=== PATIENT | female | born 1975 | race Caucasian/White ===

== ENCOUNTER 2018-01-20 10:00 | Emergency (ER) | payer OTHER ==
[2018-01-20 10:23] VITALS: Ht 170.2 cm
[2018-01-20 14:00] VITALS: BP 106/67
== END 2018-01-20 14:12 | disposition home or self-care (01) ==
LOC: ED 10:00
DX: M54.42 Lumbago with sciatica, left side (principal); R51 Headache; R07.89 Other chest pain; E66.01 Morbid (severe) obesity due to excess calories; I10 Essential (primary) hypertension; E11.9 Type 2 diabetes mellitus without complications; E78.00 Pure hypercholesterolemia, unspecified
CPT/HCPCS: J1885; J2270; J2405

== ENCOUNTER 2018-03-14 12:39 | Emergency (ER) | payer OTHER ==
[~2018-03-14] VITALS: Ht 167.6 cm; Wt 129.7 kg
[2018-03-14 12:49] VITALS: Ht 167.6 cm; Wt 129.7 kg
[2018-03-14 14:45] VITALS: BP 118/80
== END 2018-03-14 14:44 | disposition home or self-care (01) ==
LOC: ED 12:39
DX: S23.3XXA Sprain of ligaments of thoracic spine, initial encounter (principal); N39.0 Urinary tract infection, site not specified; I10 Essential (primary) hypertension; E11.9 Type 2 diabetes mellitus without complications; E78.00 Pure hypercholesterolemia, unspecified; Z98.890 Other specified postprocedural states; X58.XXXA Exposure to other specified factors, initial encounter; Y93.89 Activity, other specified; Y92.89 Other specified places as the place of occurrence of the external cause; Y99.8 Other external cause status
CPT/HCPCS: J1885

== ENCOUNTER 2018-04-17 13:41 | Emergency (ER) | payer OTHER ==
[~2018-04-17] VITALS: Ht 170.2 cm; Wt 130.3 kg
[2018-04-17 18:10] VITALS: BP 100/67
== END 2018-04-17 18:10 | disposition home or self-care (01) ==
LOC: ED 13:41
DX: G89.29 Other chronic pain (principal); M54.6 Pain in thoracic spine
CPT/HCPCS: J0780; J2270; J3010; J3490

== ENCOUNTER 2018-07-07 07:54 | Emergency (ER) | payer OTHER ==
[~2018-07-07] VITALS: Ht 170.2 cm; Wt 132.0 kg
[2018-07-07 08:01] VITALS: BP 132/67; Ht 170.2 cm; Wt 132.0 kg
== END 2018-07-07 10:43 | disposition home or self-care (01) ==
LOC: ED 07:54
DX: J04.0 Acute laryngitis (principal); E66.9 Obesity, unspecified; I10 Essential (primary) hypertension; E11.9 Type 2 diabetes mellitus without complications; E78.00 Pure hypercholesterolemia, unspecified; G89.29 Other chronic pain; Z68.42 Body mass index [BMI] 45.0-49.9, adult; Z90.49 Acquired absence of other specified parts of digestive tract
CPT/HCPCS: 87804; J7512

== ENCOUNTER 2019-05-06 14:30 | Observation (INO) | payer OTHER ==
[~2019-05-06] VITALS: Ht 167.6 cm; Wt 128.4 kg
[2019-05-06 14:51] VITALS: Ht 167.6 cm; Wt 128.4 kg
[2019-05-06 16:09] LABS: BASOPHIL % 0.3 % (0-2); PLATELET COUNT 241 x10^3mcL (130-400); RED CELL DISTRIBUTION WIDTH 14.4 % (11.5-14.5)
[2019-05-06 16:31] LABS: CALCIUM 8.2 mg/dL (8.5-10.1); CARBON DIOXIDE 25.1 mmol/L (21-32); CREATININE SERUM 1.1 mg/dL (0.6-1.0); POTASSIUM SERUM 4.3 mmol/L (3.5-5.1)
[2019-05-06 16:37] LABS: BILIRUBIN TOTAL 0.71 mg/dL (0.20-1.00)
[2019-05-06 16:43] LABS: FREE T4 1.02 ng/dL (0.76-1.46); FREE THYROXINE INDEX 2.9 ug/dL (1.4-4.5); T4(THYROXINE) 8.9 ug/dL (4.7-13.3)
[2019-05-06 16:45] LABS: ALBUMIN 3.1 g/dL (3.4-5.0); CHOLESTEROL/HDL RATIO 3.3
[2019-05-06 18:27] VITALS: BP 135/53
[2019-05-06 19:15] VITALS: BP 121/67
[2019-05-06] MEDS ORDERED: FUROSEMIDE20 MG PO (20:53)
[2019-05-06] MEDS ORDERED: ASPIR 8181 MG PO (20:54)
[2019-05-06] MEDS ORDERED: LIPI10 PO (20:56)
[2019-05-06] MEDS ORDERED: ATENOLOL25 MG PO (20:56)
[2019-05-06] MEDS ORDERED: AMARYL4 MG PO (20:57)
[2019-05-07 06:10] VITALS: BP 116/67
[2019-05-07 06:57] LABS: BASOPHIL % 0.4 % (0-2); PLATELET COUNT 233 x10^3mcL (130-400); RED CELL DISTRIBUTION WIDTH 14.5 % (11.5-14.5)
[2019-05-07 08:12] LABS: ALKALINE PHOSPHATASE 81 U/L (46-116); ALT/SGPT 40 U/L (14-59); AST/SGOT 18 U/L (15-37); CALCIUM 8.7 mg/dL (8.5-10.1); CHLORIDE SERUM 103 mmol/L (98-107); CREATININE SERUM 0.6 mg/dL (0.6-1.0); GFR1 > 60 mL/min; GLUCOSE SERUM 164 mg/dL (74-106); MAGNESIUM 1.9 mg/dL (1.8-2.4); POTASSIUM SERUM 4.3 mmol/L (3.5-5.1); SODIUM SERUM 134 mmol/L (136-145); TOTAL PROTEIN, SERUM 6.2 g/dL (6.4-8.2)
[2019-05-07 08:15] VITALS: BP 97/58
[2019-05-07 08:16] LABS: ALBUMIN 3.1 g/dL (3.4-5.0)
[2019-05-07 09:33] LABS: UA SPECIFIC GRAVITY 1.025 (1.005-1.035); microscopic required? YES; urine erythrocyte 1+ (NEGATIVE)
[2019-05-07 10:40] VITALS: BP 98/54
[2019-05-07 12:15] VITALS: BP 104/43
== END 2019-05-07 13:00 | disposition home or self-care (01) ==
LOC: ED 14:30 → DU 17:23
PROVIDERS: Specialist; ADMIT Internal Medicine Pulmonary Disease
DX: R07.89 Other chest pain (principal); E11.9 Type 2 diabetes mellitus without complications; I10 Essential (primary) hypertension; E78.5 Hyperlipidemia, unspecified; E66.9 Obesity, unspecified
CPT/HCPCS: 82962; 83880; 84439; G0378; J1815; J7030

== ENCOUNTER 2020-02-10 14:59 | Emergency (ER) | payer OTHER ==
[~2020-02-10] VITALS: Ht 167.6 cm; Wt 125.6 kg
[~2020-02-10 14:59] MED LIST: AMARYL4 MG PO; ASPIR 8181 MG PO; ATENOLOL25 MG PO; FUROSEMIDE20 MG PO; LIPI10 PO
[2020-02-10 15:16] VITALS: BP 141/94
== END 2020-02-10 17:45 | disposition home or self-care (01) ==
LOC: ED 14:59
DX: S63.502A Unspecified sprain of left wrist, initial encounter (principal); I10 Essential (primary) hypertension; E11.9 Type 2 diabetes mellitus without complications; E78.00 Pure hypercholesterolemia, unspecified; G89.29 Other chronic pain; Z90.49 Acquired absence of other specified parts of digestive tract; W18.09XA Striking against other object with subsequent fall, initial encounter; Y93.89 Activity, other specified; Y92.89 Other specified places as the place of occurrence of the external cause; Y99.8 Other external cause status

== ENCOUNTER 2020-03-31 22:19 | Emergency (ER) | payer OTHER, SELFPAY ==
[~2020-03-31] VITALS: Ht 167.6 cm; Wt 122.5 kg
[2020-03-31 22:22] VITALS: BP 137/81; Ht 167.6 cm; Wt 122.5 kg
== END 2020-03-31 23:40 | disposition home or self-care (01) ==
LOC: ED 22:19
DX: U07.1 COVID-19 (principal); I10 Essential (primary) hypertension; E11.9 Type 2 diabetes mellitus without complications; E78.00 Pure hypercholesterolemia, unspecified; G89.29 Other chronic pain; Z98.890 Other specified postprocedural states; Z90.49 Acquired absence of other specified parts of digestive tract
CPT/HCPCS: U0003